=== PATIENT | female | born 1995 | race Caucasian/White ===

== ENCOUNTER 2017-01-28 19:39 | Emergency (ER) | payer BC ==
[~2017-01-28] VITALS: Ht 160 cm; Wt 74.5 kg
[2017-01-28 19:43] VITALS: TEMP 37.1; Ht 160 cm; Wt 74.5 kg
[2017-01-28] MEDS ORDERED: LACTATED RINGER'S 1000ML 1,000 ML IV STA (20:06)
[2017-01-28] MEDS ORDERED: ONDANSETRON INJ 2 MG/ML 2 ML VIAL IV STA (20:06)
[2017-01-28] MEDS ORDERED: OPTIRAY 320 IV PRN (20:15)
[2017-01-28] MEDS ORDERED: BCPILLS PO (20:20)
[2017-01-28 20:40] LABS: BASO % 0.2 %; BASO ABS # 0.02 K/uL (0-0.2); COMPLETE YES; EOS % 0.9 %; HEMATOCRIT 42.9 % (42-52); IG% 0.2 %; LYMPH % 25.9 %; LYMPH ABS # 2.13 K/uL (1.2-3.4); MEAN CELL VOLUME 88.3 fL (80-100); MEAN CORPUSCULAR HEMOGLOBIN 30.7 pg (25-34); MEAN CORPUSCULAR HGB CONC 34.7 g/dl (32-36); MEAN PLATELET VOLUME 9.6 fL (7.4-10.4); MONO % 4.6 %; NEUT % 68.2 %; PLATELET COUNT 200 K/uL (130-400); RED BLOOD COUNT 4.86 M/uL (4.7-6.1); WHITE BLOOD COUNT 8.23 K/uL (4.8-10.8)
[2017-01-28] MEDS: MoRPHine SULFATE 10 MG/ML CARP/VIAL IV PRN ×3 (20:48→23:28)
[2017-01-28 20:58] LABS: CALCIUM 8.4 mg/dl (8.5-10.1); CREATININE 0.89 mg/dl (0.60-1.40); POTASSIUM 3.5 mmol/L (3.5-5.1)
[2017-01-28] MEDS ORDERED: MoRPHine SULFATE 4 MG/ML 1 ML CARP\\VIAL ONE (21:41)
--- NOTE | 2017-01-28 21:43 | DIAGNOSTIC IMAGING REPORT ---
PELVIC COMPLETE NON OB, TRANSVAG-FEMALE PELVIS CLINICAL HISTORY: 21 years-old Female presenting with RLQ abd pain, last menstrual period 01/11/2017. TECHNIQUE: Real-time grayscale and color and spectral Doppler ultrasound imaging of the pelvis was performed first using a transabdominal probe and subsequently transvaginal for better characterization. COMPARISON: None. FINDINGS: Uterus: Normal. Anteverted. The uterus measures 7.5 x 3.8 x 5.2 cm. Endometrial stripe measures 7 mm in thickness. Endometrium normal-appearing. Cervix normal. Right adnexa: Right ovary 1.5 cm dominant follicle. Right ovary measures 3.1 x 3.5 x 2.4 cm. Normal color Doppler flow and arterial and venous waveforms within the ovarian parenchyma. Left adnexa: Left ovary normal. Left ovary measures 4.3 x 2.4 x 3.0 cm. Normal color Doppler flow and arterial and venous waveforms within the ovarian parenchyma. Other: Moderate amount of free fluid in the pelvis. IMPRESSION: Normal uterus and ovaries. No evidence of ovarian torsion. Moderate free fluid in the pelvis, possibly physiologic and/or related to a recent ruptured functional cyst/follicle. Electronically signed by: Jonny Parks M.D. 01/28/2017 9:42 PM Dictated Date/Time: 01/28/2017 9:39 PM
[2017-01-28 22:08] LABS: URINE APPEARANCE CLEAR (CLEAR); URINE BILIRUBIN NEG (NEG); URINE COLOR YELLOW; URINE NITRITE NEG (NEG); URINE PH 5.5 (4.5-7.5); URINE SPECIFIC GRAVITY 1.009 (1.000-1.030); UROBILINOGEN NEG (NEG)
[2017-01-28 22:11] LABS: MANUAL MICROSCOPIC REQUIRED? NO; REVIEW REQ? NO
--- NOTE | 2017-01-28 22:58 | DIAGNOSTIC IMAGING REPORT ---
ABD/PELVIS IV AND ORAL CONT CLINICAL HISTORY: 21 years-old Female presenting with ABDOMINAL PAIN/GI, right lower quadrant pain. TECHNIQUE: Multidetector CT of the abdomen and pelvis was performed after the administration of oral and intravenous contrast. IV contrast: 94 mL of Optiray 320. A dose lowering technique was used consistent with the principles of ALARA (as low as reasonably achievable). COMPARISON: Ultrasound of the pelvis performed earlier the same day. CT DOSE (mGy.cm): The estimated cumulative dose is 385.38 mGy.cm. FINDINGS: Flow Nurse topogram: Unremarkable. Lung bases: Minimal dependent changes likely atelectasis. Normal heart size. No pericardial or pleural effusion. Liver: Normal morphology. No liver lesion. Patent hepatic vasculature. Biliary: Mild prominence of intrahepatic bile ducts in the right hepatic lobe. No extrahepatic biliary ductal dilatation. Normal gallbladder. Pancreas: Normal. Spleen: Normal. Adrenal glands: Normal. Kidneys and ureters: Normal. No hydronephrosis. Bladder: Normal. Pelvic organs: Uterus and ovaries normal. Bowel: Normal appendix. No bowel obstruction. Peritoneal cavity: Small free fluid in the pelvis. Lymph nodes: No enlarged lymph nodes in the abdomen or pelvis. Vasculature: Aorta and IVC patent and normal in caliber. Abdominal wall: Normal. Musculoskeletal: Normal. IMPRESSION: 1. No acute intra-abdominal pathology. 2. Small free fluid in the pelvis, likely physiologic. Electronically signed by: Jonny Parks M.D. 01/28/2017 10:57 PM Dictated Date/Time: 01/28/2017 10:52 PM
[2017-01-29 01:37] VITALS: BP 102/61; PULSE 82; O2SAT 99
--- NOTE | 2017-01-29 02:06 | EMERGENCY ROOM VISIT NOTE ---
ED Visit Note First contact with patient: 19:45 Chief Complaint: I am having pain in my lower abdomen. History of Present Illness: Ms. Moore is a 21 year-old white female who ambulates into the ED complaining of right lower quadrant abdominal pain. Historically patient reports no significant gastrointestinal, gynecological or surgical conditions. Patient reports she's been feeling fine over the last few days. She reports she took a nap today approximately 4 PM and at approximately 6:30 PM, approximately 1.5 hours ago, she was awoken from sleep with severe right lower quadrant pain. She reports since the onset of the pain it has been constant but has waxed and waned in intensity. She places her discomfort in the right lower quadrant just above McBurney's point. She describes the pain as a pressure sensation. She rates her discomfort 2/10. Her pain is nonradiating. She has not taken any medications for her pain prior to arrival at the hospital. Associated with her pain she reports she has been nauseated but has not vomited and she has been having chills. Patient denies fevers, sweats, skin eruptions, skin color changes, upper respiratory tract symptoms, shortness of breath, chest pain, diarrhea, constipation, rectal bleeding, black/tarry stools, urinary symptoms, hematuria, vaginal bleeding, vaginal discharge, painful intercourse, bleeding after intercourse, back/flank pain. Review of Systems: As noted above in history of present illness. All body systems were reviewed and found to be negative as noted above. Past Medical History: Chronic migraine headaches. Current Medications: control. Allergies to Medications: Patient denies. Social History: Patient is not employed; she feels safe in her home environment ; she denies tobacco and alcohol use. Physical Examination: Vital Signs: Date Time Temp Pulse Resp B/P (MAP) Pulse Ox O2 Delivery O2 Flow Rate FiO2 01/29/17 01:37 82 18 102/61 99 01/29/17 00:49 82 18 102/61 99 Room Air 01/28/17 23:28 68 18 119/73 97 Room Air 01/28/17 22:00 57 16 106/77 98 Room Air 01/28/17 20:25 90 01/28/17 19:43 37.1 91 18 130/83 97 Room Air GENERAL: 21-year-old female in mild to moderate distress due to pain, nontoxic- appearing, afebrile and hemodynamically stable. NEUROLOGICAL: Awake, alert and oriented to person, place and time. Answering questions appropriately and following commands. Normal gait. Good hand eye coordination. SKIN: Warm, dry and pink. No soft tissue eruptions or trauma noted. HEENT: Atraumatic and normocephalic. PERRLA. Sclera white and conjunctiva pink. Pharynx is nonerythematous or edematous. Speech normal. No lymphadenopathy. Trachea midline. No jugular venous distention. BACK: No tenderness over the bony spine. No CVA tenderness. THORAX: Lungs sounds are clear to auscultation and equal bilaterally with symmetrical chest wall. No wheezing, rales or rhonchi. No crepitus, tenderness , subcutaneous air or deformities noted. HEART: Regular rate and rhythm. No gallops, rubs or murmurs are appreciated. ABDOMEN: Flat and soft with moderate tenderness in the right lower quadrant and mild tenderness in the left lower quadrant and the suprapubic area. Mild guarding in the right lower quadrant. Decreased bowel sounds in all quadrants. No rigidity or organomegaly. EXTREMITIES: Moves all extremities well on command and with purpose. All distal neurovascular statuses are intact and equal bilaterally. ED Course: Patient is assessed as noted above. Laboratory Testing: Test 01/28/17 20:25 01/28/17 21:57 Range/Units White Blood Count 8.23 4.8-10.8 K/uL Red Blood Count 4.86 4.7-6.1 M/uL Hemoglobin 14.9 14.0-18.0 g/dL Hematocrit 42.9 42-52 % Mean Corpuscular Volume 88.3 80-100 fL Mean Corpuscular Hemoglobin 30.7 25-34 pg Mean Corpuscular Hemoglobin Concent 34.7 32-36 g/dl Platelet Count 200 130-400 K/uL Mean Platelet Volume 9.6 7.4-10.4 fL Neutrophils (%) (Auto) 68.2 % Lymphocytes (%) (Auto) 25.9 % Monocytes (%) (Auto) 4.6 % Eosinophils (%) (Auto) 0.9 % Basophils (%) (Auto) 0.2 % Neutrophils # (Auto) 5.61 1.4-6.5 K/uL Lymphocytes # (Auto) 2.13 1.2-3.4 K/uL Monocytes # (Auto) 0.38 0.11-0.59 K/uL Eosinophils # (Auto) 0.07 0-0.5 K/uL Basophils # (Auto) 0.02 0-0.2 K/uL RDW Standard Deviation 40.5 36.4-46.3 fL RDW Coefficient of Variation 12.7 11.5-14.5 % Immature Granulocyte % (Auto) 0.2 % Immature Granulocyte # (Auto) 0.02 0.00-0.02 K/uL Sodium Level 139 136-145 mmol/L Potassium Level 3.5 3.5-5.1 mmol/L Chloride Level 107 98-107 mmol/L Carbon Dioxide Level 24 21-32 mmol/L Anion Gap 8.0 3-11 mmol/L Blood Urea Nitrogen 14 7-18 mg/dl Creatinine 0.89 0.60-1.40 mg/dl Est Creatinine Clear Calc Drug Dose 120.7 ml/min Estimated GFR () 143.7 Estimated GFR (Non- 124.0 BUN/Creatinine Ratio 16.0 10-20 Random Glucose 86 70-99 mg/dl Calcium Level 8.4 8.5-10.1 mg/dl Total Bilirubin 0.8 0.2-1 mg/dl Direct Bilirubin 0.1 0-0.2 mg/dl Aspartate Amino Transf (AST/SGOT) 14 15-37 U/L Alanine Aminotransferase (ALT/SGPT) 19 12-78 U/L Alkaline Phosphatase 58 45-117 U/L Total Protein 7.7 6.4-8.2 gm/dl Albumin 3.8 3.4-5.0 gm/dl Lipase 177 73-393 U/L Urine Color YELLOW Urine Appearance CLEAR CLEAR Urine pH 5.5 4.5-7.5 Urine Specific [place] 1.009 1.000-1.030 Urine Protein NEG NEG Urine Glucose (UA) NEG NEG Urine Ketones NEG NEG Urine Occult Blood NEG NEG Urine Nitrite NEG NEG Urine Bilirubin NEG NEG Urine Urobilinogen NEG NEG Urine Leukocyte Esterase NEG NEG Urine Test NEG Pelvic Ultrasound: Was reviewed by myself and read by the radiologist showing normal uterus and ovaries, no evidence of ovarian torsion, moderate free fluid in the pelvis; possible physiological or possibly related to recent ruptured cystic structure. Contrast Abdominal/Pelvic CT: Was reviewed by myself and read by the radiologist showing minimal dependent changes in the lung bases consistent with atelectasis, normal-appearing heart size no pericardial or pleural effusion, normal-appearing liver without lesion, mild prominent intrahepatic blurry docs in the right hepatic lobe, normal-appearing gallbladder, normal-appearing pancreas, normal-appearing spleen, normal-appearing adrenal glands, normal- appearing kidneys and uterus without hydronephrosis, normal-appearing bladder, normal-appearing uterus and ovaries, normal-appearing appendix and bowel with no signs of obstruction, small free fluid in the pelvis, no enlargement of the lymph nodes in the abdomen or pelvis, normal-appearing aorta and inferior vena cava, normal-appearing abdominal wall and musculoskeletal structures. Patient was hydrated with lactated Ringer's and she received a total of 8 mg of morphine IV and 4 mg of Zofran IV. Patient was reassessed multiple times during her stay in the emergency department. Patient's case was reviewed with Dr. Olivera; we agreed on diagnostic approach, treatment, disposition and plan. Patient was allowed to stay in the emergency department until her parents arrived from [place]; I did review all of the patient's laboratory studies and radiological tests. Patient parents are educated about today's findings and instructed on her treatment plan; they verbalized understanding and agreement with this plan. Clinical Impression: Acute right lower quadrant abdominal pain. Decision-Making: Initially my differential diagnosis I considered appendicitis, ovarian cyst rupture, ovarian torsion, ectopic , uterine calculus, urinary tract infection, constipation and other causes. Disposition: Patient discharged home in stable condition accompanied by her parents; prior to departure she was reassessed and subjectively reported she was pain-free. Plan: Encouraged that the patient alternate ibuprofen and acetaminophen as needed for pain. Was encouraged that the patient follow-up at [facility] or return to the ED in 12 hours for recheck. Encouraged that the patient to return to the ED for worsening pain, fevers, vomiting or any new/concerning symptoms.
== END 2017-01-29 01:37 | disposition home or self-care (01) ==
LOC: EDSEX 19:41 → C.EDB 19:41 → C.EDA 01-29 01:37
DX: R10.31 Right lower quadrant pain (principal)